=== PATIENT | female | born 1950 | race Caucasian/White ===

== ENCOUNTER 2020-09-30 14:40 | Outpatient (CLI) | payer MEDICARE, MEDICAID, SELFPAY ==
--- NOTE | 2020-09-30 13:45 | DI.RAD_ITS ---
EXAM: XR KNEE LT 3V AP,LAT,DADA CLINICAL HISTORY: hisotyr meniscus tear. TECHNIQUE: 2D digital imaging was performed. COMPARISON: CR XR KNEE RT 3V AP,LAT,DADA from 09/30/2020 FINDINGS: Degenerative changes are seen in the left knee with narrowing of the lateral femoral tibial joint. P eriarticular spurring is seen in the femoral tibial joint. Chondrocalcinosis is present. Bones are intact and normally mineralized. The soft tissues are unremarkable. IMPRESSION: Mlae-im-rgtaqusw degenerative changes of the left knee. DATA REPOSITORY: RADIATION DOSE DELIVERED:
--- NOTE | 2020-09-30 13:45 | DI.RAD_ITS ---
EXAM: XR KNEE RT 3V AP,LAT,DAAD CLINICAL HISTORY: pain. TECHNIQUE: 2D digital imaging was performed. COMPARISON: No previous for comparison. FINDINGS: There are findings of a prior right total knee replacement. The orthopedic hardware appears in good position. No acute fracture or dislocation. Vascular calcifications are seen in the soft tissues wh ich are otherwise unremarkable. There is a small joint effusion. IMPRESSION: Right TKR. DATA REPOSITORY: RADIATION DOSE DELIVERED:
== END 2020-09-30 14:41 | disposition home or self-care (01) ==
LOC: DIORS 14:41
PROVIDERS: PCP Physician Assistant; Referring Provider Physician Assistant; Visit Provider Student in an Organized Health Care Education/Training Program
DX: M25.562 Pain in left knee (principal); M17.12 Unilateral primary osteoarthritis, left knee; M25.561 Pain in right knee; Z96.651 Presence of right artificial knee joint; M25.461 Effusion, right knee; M23.92 Unspecified internal derangement of left knee; M75.51 Bursitis of right shoulder; M70.61 Trochanteric bursitis, right hip; M70.62 Trochanteric bursitis, left hip
CPT/HCPCS: 20610; 73562; 99203; J1040

== ENCOUNTER 2020-10-09 02:01 | Outpatient (CLI) | payer MEDICARE, MEDICAID, SELFPAY ==
--- NOTE | 2020-10-09 06:15 | DI.NM_ITS ---
EXAM: NM BONE SCAN 3 PHASE CLINICAL HISTORY: ? prosthesis loosening,H/O ARTHROPLASTY, PAIN,Z96.651 TECHNIQUE: 25 millicuries IV technetium 99 MDP. Triple phase technique. SPECT imaging performed. COMPARISON: CR LEFT KNEE LIMITED 1 OR 2 VIEWS from 04/13/2013 CR XR KNEE RT 3V AP,LAT,DADA from 09/30/2020 CR XR KNEE LT 3V AP,LAT,DADA from 09/30/2020 CR XR KNEE LT 3V AP,LAT,DADA from 09/30/2020 FINDINGS: Immediate post-injection phase/flow phase reveals no prominent asymmetry. Equilibrium phase imaging does not reveal significant uptake in either knee Delayed imaging reveals some uptake in the lateral aspect of the left knee which appears to be in the tibial fibular joint. Delayed cone down imaging reveals uptake in the opposite-right knee (side of the prosthesis) reveals increased uptake equally subjacent to both sides of the tibial plateau component and surrounding both sides of the femoral component posteriorly. However, on the delayed whole body images this uptake is less impressive on the femoral side. Findings probably represent an element of loosening on the tibi al aspect of the prosthesis. Whole-body delayed images reveal abnormal focal uptake seen in the right side of L5 and left side of L1-2 level. Probably related to degenerative facet arthropathy on the right side L5-S1 and degenerat murray disc changes on the left side at L1-2 level. However, there are no plain films nor CT images at this level. Delayed images also reveal symmetrical uptake at the metatarsophalangeal joints of both great toes an d more proximally in the left foot and what is probably the talonavicular joint. There is no abnormal uptake seen in the hips nor main of the long bones and rib cages nor in the skul l. Small uptake in the left wrist at the 1st carpometacarpal joint is noted, most probably degenerat murray. IMPRESSION: 1. Uptake in the left knee is predominantly at this tibiofibular joint and with a lesser amount in th e lateral compartment-lateral tibial plateau. These findings are most probably related to degenerati ve changes. 2. Mild symmetrical increased uptake is evident around the tibial component of the right knee prosthe sis; less so around the femoral component. Somewhat suspicious for tibial component loosening despite relatively unremarkable appearing recent plain radiographs. 3. Focal uptake seen on the right side of L5 and left side of L1-2 level. Recommend follow-up lumbar spine plain films.
== END 2020-10-09 02:21 ==
PROVIDERS: PCP Physician Assistant; Visit Provider Student in an Organized Health Care Education/Training Program
DX: M25.561 Pain in right knee (principal); Z96.651 Presence of right artificial knee joint; M25.562 Pain in left knee; M17.12 Unilateral primary osteoarthritis, left knee; M51.37 Other intervertebral disc degeneration, lumbosacral region
CPT/HCPCS: 78315

== ENCOUNTER 2020-12-02 15:19 | Outpatient (CLI) | payer MEDICARE, MEDICAID, SELFPAY ==
--- NOTE | 2020-12-02 14:15 | DI.RAD_ITS ---
Exam(s) XR WRIST RT COMPLETE EXAM: XR WRIST RT COMPLETE CLINICAL HISTORY: acute pain. TECHNIQUE: 2D digital imaging was performed. COMPARISON: CR RIGHT WRIST LIMITED from 08/29/2014 CR RIGHT WRIST LIMITED from 09/28/2014 CR RIGHT WRIST LIMITED from 10/19/2014 FINDINGS: BONES: There is an old fracture deformity of the distal radial metaphysis. There is a lucency seen t hrough the base of the ulnar styloid process. This may represent an acute fracture or partially heal ed fracture. No bony destructive lesion is seen. JOINTS: Degenerative changes are seen at the radiocarpal joint and the 1st CMC joint. Degenerative c hanges are also seen at the articulation of the scaphoid and the quadrangular bones. SOFT TISSUE: Mild soft tissue swelling of the wrist. IMPRESSION: 1. Old fracture deformity of the distal right radius. 2. Questionable lucency at the base of the ulnar styloid process. Acute fracture cannot be excluded. Please correlate clinically. 3. Osteoarthritis of the wrist. DATA REPOSITORY: RADIATION DOSE DELIVERED:
== END 2020-12-02 15:20 | disposition home or self-care (01) ==
LOC: DIORS 15:19
PROVIDERS: PCP Physician Assistant; Referring Provider Physician Assistant; Visit Provider Student in an Organized Health Care Education/Training Program
DX: M25.562 Pain in left knee (principal); M25.531 Pain in right wrist; Z96.651 Presence of right artificial knee joint; S83.242D Other tear of medial meniscus, current injury, left knee, subsequent encounter; X58.XXXD Exposure to other specified factors, subsequent encounter; M70.61 Trochanteric bursitis, right hip; M70.62 Trochanteric bursitis, left hip; Z98.890 Other specified postprocedural states; M19.031 Primary osteoarthritis, right wrist
CPT/HCPCS: 99214; 73110

== ENCOUNTER → 2021-01-06 13:55 | Outpatient (BNVA) | payer MEDICARE, MEDICAID, SELFPAY | PROVIDERS: PCP Physician Assistant; Referring Provider Physician Assistant; Visit Provider Physician Assistant | DX: M25.562 Pain in left knee (principal); M25.561 Pain in right knee; Z96.651 Presence of right artificial knee joint | CPT/HCPCS: 20610; 99214; J1040 ==

== ENCOUNTER → 2021-07-17 13:42 | Outpatient (BNVA) | payer MEDICARE, MEDICAID, SELFPAY | PROVIDERS: PCP Nurse Practitioner Family; Referring Provider Physician Assistant | DX: S83.242D Other tear of medial meniscus, current injury, left knee, subsequent encounter (principal); X58.XXXD Exposure to other specified factors, subsequent encounter | CPT/HCPCS: 20610; J1040 ==

== ENCOUNTER → 2022-03-05 09:06 | Outpatient (BNVA) | payer MEDICARE, MEDICAID, SELFPAY | PROVIDERS: PCP Nurse Practitioner Family; Referring Provider Nurse Practitioner Family; Visit Provider Student in an Organized Health Care Education/Training Program | DX: X58.XXXA Exposure to other specified factors, initial encounter (principal); S83.242A Other tear of medial meniscus, current injury, left knee, initial encounter | CPT/HCPCS: 20610; J1040 ==

== ENCOUNTER → 2022-04-24 10:25 | Outpatient (BNVA) | payer MEDICARE, MEDICAID, SELFPAY | PROVIDERS: PCP Nurse Practitioner Family; Referring Provider Nurse Practitioner Family; Visit Provider Student in an Organized Health Care Education/Training Program | DX: M70.52 Other bursitis of knee, left knee (principal) | CPT/HCPCS: 20610; J1030 ==

== ENCOUNTER → 2022-09-28 10:47 | Outpatient (BNVA) | payer MEDICARE, MEDICAID, SELFPAY | PROVIDERS: PCP Nurse Practitioner Family; Referring Provider Nurse Practitioner Family | DX: M70.52 Other bursitis of knee, left knee (principal); S83.242A Other tear of medial meniscus, current injury, left knee, initial encounter; X58.XXXA Exposure to other specified factors, initial encounter | CPT/HCPCS: 20610; J1030; J1040 ==

== ENCOUNTER 2022-09-28 13:17 | Outpatient (REF) | payer MEDICARE, MEDICAID, SELFPAY | END 2022-09-28 13:18 | disposition home or self-care (01) | LOC: LBN 13:17 | PROVIDERS: PCP Nurse Practitioner Family; Visit Provider Obstetrics & Gynecology | DX: N76.0 Acute vaginitis (principal); B96.89 Other specified bacterial agents as the cause of diseases classified elsewhere | CPT/HCPCS: 87480; 87510; 87660 ==

== ENCOUNTER 2022-11-12 12:30 | Outpatient (REF) | payer MEDICARE, MEDICAID, SELFPAY ==
--- NOTE | 2022-11-12 10:40 | ENDO_PTH ---
PATIENT: Amalia Kelly LOC: [facility] U#:[id number] AGE/SX: 72/F ROOM: RE11/12/[address]: Loretta Kline DO : 1950 BED: DIS: 11/12/2022 SPEC #: [id number] RECD: 11/12/22 13:02 STATUS: MARY REQ #: [id number] BARB: 11/12/22 10:[address]: Loretta Kline DEPT: Surgical Specimen RECD BY: Elle Sparks ENTERED: 11/12/22 13:02 SP TYPE: Endo OTHR DR: Kenneth Astorga Tissues: 1 - ENDOCERVICAL BX/CURRETTE Procedures: GROSS AND MICRO LEVEL 4 Comments: [id number]
== END 2022-11-12 12:31 | disposition home or self-care (01) ==
LOC: LBN 12:30
PROVIDERS: PCP Nurse Practitioner Family; Visit Provider Obstetrics & Gynecology
DX: N88.8 Other specified noninflammatory disorders of cervix uteri (principal); R87.810 Cervical high risk human papillomavirus (HPV) DNA test positive
CPT/HCPCS: 88305

== ENCOUNTER → 2023-07-05 14:22 | Outpatient (BNVA) | payer MEDICARE, MEDICAID, SELFPAY | PROVIDERS: PCP Nurse Practitioner Family; Referring Provider Nurse Practitioner Family; Visit Provider Student in an Organized Health Care Education/Training Program | DX: M23.92 Unspecified internal derangement of left knee (principal); M17.12 Unilateral primary osteoarthritis, left knee; S83.242D Other tear of medial meniscus, current injury, left knee, subsequent encounter; X58.XXXD Exposure to other specified factors, subsequent encounter; T84.022A Instability of internal right knee prosthesis, initial encounter | CPT/HCPCS: 20610; J1030; J1040 ==

== ENCOUNTER 2023-11-18 11:44 | Outpatient (REF) | payer MEDICARE, MEDICAID, SELFPAY ==
--- NOTE | 2023-11-18 11:15 | PAPFT_PTH ---
PATIENT: Amalia Kelly LOC: [facility] U#:[id number] AGE/SX: 73/F ROOM: RE11/18/[address]: Loretta Kline DO : 1950 BED: DIS: 11/18/2023 SPEC #: [id number] RECD: 11/18/23 12:38 STATUS: MARY REQ #: [id number] BARB: 11/18/23 11:[address]: Loretta Kline DEPT: [facility] Cytology RECD BY: Elle Sparks ENTERED: 11/18/23 12:39 SP TYPE: PAPFT OTHR DR: Kenneth Astorga Tissues: 1 - CX/ENDOCX FOR PAP SMEARS Procedures: PAP THIN PREP/[facility] Screening HPV DNA PROBE Comments: [id number] (HPV 16 & 18/45)
== END 2023-11-18 11:45 | disposition home or self-care (01) ==
LOC: LBN 11:44
PROVIDERS: PCP Nurse Practitioner Family; Visit Provider Obstetrics & Gynecology
DX: Z01.419 Encounter for gynecological examination (general) (routine) without abnormal findings; B97.7 Papillomavirus as the cause of diseases classified elsewhere; Z11.51 Encounter for screening for human papillomavirus (HPV)
CPT/HCPCS: 88142; 87624

== ENCOUNTER 2023-12-23 11:00 | Outpatient (CLI) | payer MEDICARE, MEDICAID, SELFPAY ==
--- NOTE | 2023-12-23 08:15 | DI.RAD_ITS ---
Exam(s) XR KNEE LT 4V AP,LAT,DADA,PAT EXAM: XR KNEE LT 4V AP,LAT,DADA,PAT CLINICAL HISTORY: LEFT KNEE PAIN. TECHNIQUE: 2D digital imaging was performed of the left knee. Four images were obtained. Merchant, AP, lateral and PA tunnel views were obtained. COMPARISON: CR XR KNEE LT 3V AP,LAT,DADA from 09/30/2020 FINDINGS: BONES: No acute fracture is present. No bony destructive lesion is seen. JOINTS: There is moderate narrowing of the lateral femoral tibial joint space. There osteophytes in the medial lateral femoral tibial joint. There is chondrocalcinosis seen in the medial femoral tibia l joint. There is a small joint effusion. No loose body. SOFT TISSUE: Normal. IMPRESSION: Stable xwze-kq-zficwojc degenerative changes of the left knee. Small joint effusion. DATA REPOSITORY: RADIATION DOSE DELIVERED:
== END 2023-12-23 11:01 | disposition home or self-care (01) ==
LOC: DIORS 11:00
PROVIDERS: PCP Nurse Practitioner Family; Referring Provider Nurse Practitioner Family; Visit Provider Student in an Organized Health Care Education/Training Program
DX: M70.52 Other bursitis of knee, left knee; M17.12 Unilateral primary osteoarthritis, left knee
CPT/HCPCS: 20610; J1010; 73564

== ENCOUNTER → 2024-02-15 14:19 | Outpatient (BNVA) | payer MEDICARE, MEDICAID, SELFPAY | PROVIDERS: PCP Nurse Practitioner Family; Referring Provider Nurse Practitioner Family; Visit Provider Internal Medicine Critical Care Medicine | DX: J44.9 Chronic obstructive pulmonary disease, unspecified (principal); F17.210 Nicotine dependence, cigarettes, uncomplicated | CPT/HCPCS: 99215 ==

== ENCOUNTER 2024-02-22 03:06 | Outpatient (CLI) | payer MEDICARE, MEDICAID, SELFPAY ==
--- NOTE | 2024-03-10 14:28 | RT.PO.N_ITS ---
Date of service: 02/22/24 Time of Service: 22:09 Nocturnal Oximetry Note: Report: Overnight Oximetry on Room Air without BiPAP. Patient: LEONIDES Hammond 1950 Indication: COPD Ordering provider: Joycelyn Beck Date of study: February 22, 2024 Conditions of test: Test done by [facility] with home oximetry.? Desaturation events were defined as drop in SpO2 by 4% for a minimum duration of 10 seconds. Results: Minimum oxygen saturation (SpO2) was 80% at 0316 hrs. Time spent with SpO2 less than 88% was 0.6 minutes. The maximum single time with SpO2 less than 88% was 20 seconds at 0511 hrs. Average pulse was 50 bpm, high pulse was not determined due to artifact but review of histograms showed it remain less than 90 bpm. The technical quality of this test was adequate for clinical decision making. Impression: 1.? There was NO clinically significant oxygen desaturation. 2.? This test does NOT meet Medicare criteria for supplemental oxygen. Recommendations: Clinical correlation is recommended Donavan Amaya MD [facility] Pulmonary & Critical Care Medicine
== END 2024-02-22 03:07 | disposition home or self-care (01) ==
LOC: RT 03:06
PROVIDERS: PCP Nurse Practitioner Family; Visit Provider Internal Medicine Critical Care Medicine
DX: J44.9 Chronic obstructive pulmonary disease, unspecified (principal)
CPT/HCPCS: 00123; 94762

== ENCOUNTER 2024-03-30 10:17 | Outpatient (CLI) | payer MEDICARE, MEDICAID, SELFPAY ==
--- NOTE | 2024-03-30 09:45 | DI.RAD_ITS ---
Exam(s) XR KNEE RT 2V AP,LAT EXAM: XR KNEE RT 2V AP,LAT CLINICAL HISTORY: RIGHT KNEE PAIN. TECHNIQUE: 2D digital imaging was performed. Three views. COMPARISON: CR XR KNEE RT 3V AP,LAT,DADA from 09/30/2020 FINDINGS: BONES: No acute fracture is present. No bony destructive lesion is seen. Stable appearance of total k nee prosthesis. JOINTS: The knee is normally aligned. No joint effusion is seen. SOFT TISSUE: Normal. IMPRESSION: Stable appearance of total knee prosthesis. DATA REPOSITORY: RADIATION DOSE DELIVERED:
== END 2024-03-30 10:18 | disposition home or self-care (01) ==
LOC: DIORS 10:17
PROVIDERS: PCP Nurse Practitioner Family; Referring Provider Nurse Practitioner Family; Visit Provider Student in an Organized Health Care Education/Training Program
DX: Z96.651 Presence of right artificial knee joint (principal); M17.12 Unilateral primary osteoarthritis, left knee
CPT/HCPCS: 20610; J1010; 73560

== ENCOUNTER → 2024-07-10 13:46 | Outpatient (BNVA) | payer MEDICARE, MEDICAID, SELFPAY | PROVIDERS: PCP Nurse Practitioner Family; Referring Provider Nurse Practitioner Family | DX: M23.92 Unspecified internal derangement of left knee (principal); S83.242A Other tear of medial meniscus, current injury, left knee, initial encounter; X58.XXXA Exposure to other specified factors, initial encounter; M17.12 Unilateral primary osteoarthritis, left knee | CPT/HCPCS: 20610; J1010 ==

== ENCOUNTER → 2024-12-11 14:16 | Outpatient (BNVA) | payer MEDICARE, MEDICAID, SELFPAY | PROVIDERS: PCP Nurse Practitioner Family; Referring Provider Nurse Practitioner Family; Visit Provider Physician Assistant | DX: M17.12 Unilateral primary osteoarthritis, left knee (principal); M23.92 Unspecified internal derangement of left knee; S83.242A Other tear of medial meniscus, current injury, left knee, initial encounter; X50.0XXA Overexertion from strenuous movement or load, initial encounter | CPT/HCPCS: 20610; J1010 ==

== ENCOUNTER 2024-12-19 15:58 | Outpatient (REF) | payer MEDICARE, MEDICAID, SELFPAY ==
--- NOTE | 2024-12-19 15:00 | PAPFT_PTH ---
PATIENT: Amalia Kelly LOC: [facility] U#:[id number] AGE/SX: 74/F ROOM: RE12/19/[address]: Loretta Kline DO : 1950 BED: DIS: 12/19/2024 SPEC #: [id number] RECD: 12/19/24 16:48 STATUS: SOUArmando REQ #: [id number] BARB: 12/19/24 15:[address]: Loretta Kline DEPT: [facility] Cytology RECD BY: Elle Sparks ENTERED: 12/19/24 16:48 SP TYPE: PAPFT OTHR DR: Kenneth Astorga Tissues: 1 - CX/ENDOCX FOR PAP SMEARS Procedures: PAP THIN PREP/[facility] Screening HPV DNA PROBE Comments: [id number] (HPV 16 & 18/45)
== END 2024-12-19 15:59 | disposition home or self-care (01) ==
LOC: LBN 15:58
PROVIDERS: PCP Nurse Practitioner Family; Visit Provider Obstetrics & Gynecology
DX: Z12.4 Encounter for screening for malignant neoplasm of cervix (principal)
CPT/HCPCS: 88142; 87624